=== PATIENT | female | born 1990 | race American Indian/Alaskan Native ===

== ENCOUNTER 2017-02-04 22:37 | Emergency (ER) | payer OTHER ==
[2017-02-05] MEDS ORDERED: MOTRIN PO ONE (02:56)
[2017-02-05] MEDS ORDERED: BOOSTRIX IM ONE (02:56)
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
--- NOTE | 2017-02-05 02:59 | XRay Report ---
FINAL REPORT PROCEDURE: XR FOOT 3+V LT TECHNIQUE: LEFT foot radiographs, AP, lateral, and oblique views. CPT 61598 HISTORY: foot pain COMPARISON: No prior studies are available for comparison. FINDINGS: Fracture (s) and/or Dislocation(s): None . Alignment: Normal . Joint space(s): Normal . Soft tissues: Normal . Bone mineralization: Normal . Foreign bodies: None . Calcaneal spurring: None . IMPRESSION: Normal Examination .
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
[2017-02-05 04:56] VITALS: BP 121/75
== END 2017-02-05 04:57 | disposition home or self-care (01) ==
LOC: EEVIPCON 22:37 → ED 22:37
DX: S96.912A Strain of unspecified muscle and tendon at ankle and foot level, left foot, initial encounter (principal); S00.93XA Contusion of unspecified part of head, initial encounter; F17.210 Nicotine dependence, cigarettes, uncomplicated; Z91.018 Allergy to other foods; Y00.XXXA Assault by blunt object, initial encounter; Y93.89 Activity, other specified; Y92.89 Other specified places as the place of occurrence of the external cause; Y99.8 Other external cause status
CPT/HCPCS: 70450; 90471; 90715; 99284